=== PATIENT | female | born 1965 | race Caucasian/White ===

== ENCOUNTER → 2017-05-15 | Outpatient (CLI) | payer BC ==
--- NOTE | 2017-05-21 09:10 | MAM ---
EXAM DESCRIPTION: 3D Screening BILATERAL CLINICAL HISTORY: 52 yearsFemaleSCREENING. Postmenopausal. Currently on HRT. COMPARISON: Digital 2-D bilateral screening study 01/19/2014. No prior reports available. TECHNIQUE: Bilateral CC and MLO projection full-field images, 3-D tomosynthesis digital mammographic technique. Also bilateral synthesized CC/ MLO full-field images. CAD not utilized. FINDINGS: The breast parenchymal density pattern is: Extremely dense breast tissue, which lowers the sensitivity of mammography. No skin thickening or nipple retraction bilateral axillary lymph nodes, larger on the right. Tight group of multiple heterogeneous calcifications at the 630 clock position posterior third of the right breast approximately 7 cm from the nipple. These are faintly seen on the prior study from 2013. Other groups of microcalcifications are noted., More in the right breast. Oval-shaped mass approximately 8 mm in diameter with mostly well-defined borders and some borders obscured, in the anterior third of the lower outer quadrant of the left breast at the 430 clock position, 5 cm from the nipple. No definite calcifications. Not definitely seen on the prior study. No focal, stellate mass or density in the right breast, , and no suspicious microcalcifications in the left breast. IMPRESSION: BI-RADS CATEGORY: 0 - INCOMPLETE- Need additional imaging evaluation. FOLLOW-UP: Recall for additional imaging: Digital full field LM projection 3-D tomosynthesis right breast. 2-D spot magnification right breast calcifications described above. Targeted bilateral breast ultrasound for the regions of interest described above. Written communication concerning the FINDINGS and IMPRESSION will be mailed to the patient and referring health care provider. Electronically signed by: Alejandro Cummins MD 05/21/2017 9:09 AM CDT Workstation: [id number]
== END ==
LOC: MAMMO 11:40
PROVIDERS: ATTEND Family Medicine
DX: Z12.31 Encounter for screening mammogram for malignant neoplasm of breast (principal)
CPT/HCPCS: G0202; G0279

== ENCOUNTER → 2017-06-04 | Outpatient (CLI) | payer BC ==
--- NOTE | 2017-06-04 16:06 | MAM ---
EXAM DESCRIPTION: 3D Diagnostic, Right CLINICAL HISTORY: 52 yearsFemaleABN MAMMO COMPARISON: Digital 3-D tomosynthesis bilateral screening study 05/15/2017. Targeted left breast ultrasound on this visit. TECHNIQUE: Digital 3-D tomosynthesis of the right breast in the LM axis. Digital 2-D spot magnification images of the lower outer quadrant of the right breast without and with mole skin marker. CAD was utilized on the 2-D images. FINDINGS: The small group of multiple unusual calcifications containing radiolucency are associated with a skin mole at the 700 clock position of the undersurface of the right breast. Other solitary microcalcifications and homogeneous calcifications in small groups are noted. No skin thickening. IMPRESSION: BI-RADS CATEGORY: 2 - BENIGN FINDINGS. FOLLOW UP: Return to routine digital bilateral screening, one year interval from April 2017. The results and follow-up were discussed in person with the patient. Written communication explaining the findings and follow-up, will be mailed to the patient and referring health care provider. According to the [employer], yearly mammograms are recommended starting at age 40 and continuing as long as a woman is in good health. Any breast change noted on a breast self-exam should be reported promptly to the patient's healthcare provider. Breast MRI is recommended for women with an approximately 20-25% or greater lifetime risk of breast cancer, including women with a strong family history of breast or ovarian cancer and women who have been treated for Hodgkin's disease. A negative mammographic report should not delay tissue diagnosis in patients with significant clinical history or physical findings. Extremely dense breast tissue limits the sensitivity of digital mammography. Electronically signed by: Alejandro Cummins MD 06/04/2017 4:05 PM CDT Workstation: [id number]
--- NOTE | 2017-06-04 16:07 | US ---
EXAM DESCRIPTION: Breast,Left CLINICAL HISTORY: 52 yearsFemaleABNORMAL MAMMO COMPARISON: Digital bilateral 3-D tomosynthesis diagnostic examination today. Bilateral digital 3-D tomosynthesis screening examination 05/15/2017. TECHNIQUE: Transcutaneous scanning of the lower outer quadrant of the anterior middle left breast utilizing two-dimensional and Doppler modes. Scanning performed by the editorial manager and Dr. Cummins. FINDINGS: Round mass which is anechoic with well-defined gomez near the skin surface at the 400 clock position, 4 cm from the nipple. 6.6 x 5.9 mm. Similar smaller mass abutting the larger mass. Both masses with posterior enhancement features, not vascular. Consistent with cysts. No discrete solid mass, calcifications, or parenchymal edema. Deeper in the left breast at the 500 clock position 4 cm from the nipple is a round hypoechoic to anechoic mass with mostly well-defined gomez and mixed posterior features measuring 3.4 x 3.8 mm. Nonvascular. Surrounded by heterogeneous fatty and fibroglandular tissues. No discrete solid mass or calcifications. No parenchymal edema. This is most likely a cyst and less likely fibroadenoma or lymph node. IMPRESSION: BI-RADS CATEGORY: 2 - BENIGN FINDINGS. FOLLOW UP: Please refer to digital diagnostic 3-D tomosynthesis examination and report. Written communication explaining the findings and follow-up, will be mailed to the patient and referring health care provider.The findings and the follow-up plan were reviewed in person with the patient after the examination. Electronically signed by: Alejandro Cummins MD 06/04/2017 4:06 PM CDT Workstation: [id number]
== END ==
LOC: MAMMO 13:30
PROVIDERS: ATTEND Family Medicine
DX: R92.8 Other abnormal and inconclusive findings on diagnostic imaging of breast (principal)
CPT/HCPCS: 76641; G0279

== ENCOUNTER → 2018-11-17 | Outpatient (CLI) | payer BC ==
--- NOTE | 2018-11-18 08:43 | MAM ---
EXAM DESCRIPTION: 3D Screening BILATERAL : Digital Mammography. CLINICAL HISTORY: 53 years Female SCREEN no complaints. No personal or family history of breast cancer. Childbirth. Postmenopausal for years. Currently on HRT. Lifetime risk of developing breast cancer (Tyrer-Cuzick model)(%): 9.1. COMPARISON: Bilateral screening digital breast tomosynthesis 05/15/2017.. Left breast diagnostic tomosynthesis and targeted ultrasound 06/04/2017. TECHNIQUE: Bilateral CC and MLO projection full-field images, digital tomosynthesis mammographic technique Bilateral digital 2-D full-field MLO images. CAD not available for tomosynthesis or 2-D images. FINDINGS: The breast parenchymal density pattern is: Heterogeneously dense breast tissue, which may obscure small masses. No skin thickening or nipple retraction. Right breast axillary lymph nodes. Multiple skin moles indicated by skin markers. Scattered bilateral microcalcifications. Again seen is cluster of microcalcifications associated with a skin mole posterior inferior right breast. No new focal, stellate mass or density, focal asymmetry , and no suspicious microcalcifications bilaterally. Stable mammograms compared to prior study. Taking into account, differences in mammographic technique. IMPRESSION: Benign exam. BIRAD CATEGORY: 2 BENIGN FINDINGS. RECOMMENDATIONS: FOLLOW UP: Routine digital bilateral mammographic screening, one year interval from 2018 Written communication explaining the IMPRESSION and follow-up, will be mailed to the patient and referring health care provider. According to the [employer], yearly mammograms are recommended starting at age 40 and continuing as long as a woman is in good health. Any breast change noted on a breast self-exam should be reported promptly to the patient's healthcare provider. Breast MRI is recommended for women with an approximately 20-25% or greater lifetime risk of breast cancer, including women with a strong family history of breast or ovarian cancer and women who have been treated for Hodgkin's disease. A negative mammographic report should not delay tissue diagnosis in patients with significant clinical history or physical findings. Extremely dense breast tissue limits the sensitivity of digital mammography. Electronically signed by: Alejandro Cummins MD 11/18/2018 8:42 AM ENGAGEMENT ENGINEER
== END ==
LOC: MAMMO 09:56
PROVIDERS: ATTEND Obstetrics & Gynecology
DX: Z12.31 Encounter for screening mammogram for malignant neoplasm of breast (principal)

== ENCOUNTER → 2020-03-07 | Outpatient (CLI) | payer BC ==
--- NOTE | 2020-03-08 19:27 | MAM ---
EXAM DESCRIPTION: 3D Screening BILATERAL : Digital Mammography. CLINICAL HISTORY: 55 years Female SCREENING . No complaints. No personal or family history of breast cancer. Menarche age 11. Childbirth age 23. Menopause age 50. Currently on HRT. Lifetime risk of developing breast cancer (Tyrer-Cuzick model)(%): 8.7. COMPARISON: Bilateral screening digital breast tomosynthesis October. TECHNIQUE: Bilateral CC and MLO projection full-field images, digital tomosynthesis mammographic technique. Bilateral digital 2-D full-field MLO images. CAD available for 2-D images. FINDINGS: The breast parenchymal density pattern is: Heterogeneously dense breast tissue, which may obscure small masses. No skin thickening or nipple retraction. Bilateral nodular fibroglandular tissues. Skin mole markers. Solitary microcalcifications. Microcalcifications diffusely associated with the fibroglandular tissues. Left axillary nodes. Bilateral areas of focal asymmetry are stable. No new focal, stellate mass or density, focal asymmetry , and no suspicious microcalcifications bilaterally. Stable mammograms compared to prior study. IMPRESSION: Benign exam. BIRAD CATEGORY: 2 BENIGN FINDINGS. RECOMMENDATIONS: FOLLOW UP: Routine digital bilateral mammographic screening, one year interval from February 2020. Written communication explaining the IMPRESSION and follow-up, will be mailed to the patient and referring health care provider. According to the [employer], yearly mammograms are recommended starting at age 40 and continuing as long as a woman is in good health. Any breast change noted on a breast self-exam should be reported promptly to the patient's healthcare provider. Breast MRI is recommended for women with an approximately 20-25% or greater lifetime risk of breast cancer, including women with a strong family history of breast or ovarian cancer and women who have been treated for Hodgkin's disease. A negative mammographic report should not delay tissue diagnosis in patients with significant clinical history or physical findings. Extremely dense breast tissue limits the sensitivity of digital mammography. Electronically signed by: Alejandro Cummins MD 03/08/2020 7:25 PM CDT
== END ==
LOC: MAMMO 13:30
PROVIDERS: ATTEND Family Medicine
DX: Z12.31 Encounter for screening mammogram for malignant neoplasm of breast (principal)